=== PATIENT | male | born 1950 | race Caucasian/White ===

== ENCOUNTER → 2017-10-07 | Outpatient (CLI) | payer OTHER | END | disposition home or self-care (01) | LOC: CDC 14:33 | DX: Z01.810 Encounter for preprocedural cardiovascular examination (principal) | CPT/HCPCS: 93000 ==

== ENCOUNTER 2017-10-16 01:44 | Observation (INO) | payer OTHER ==
[~2017-10-16] VITALS: Ht 177.8 cm; Wt 90.3 kg
[2017-10-16 02:12] LABS: HEMATOCRIT 42.6 % (38.0-50.0); HEMOGLOBIN 15.2 G/DL (12.5-16.6); MCH 32.1 PG (29.0-34.0); MCHC 35.7 G/DL (30.0-36.0); MCV 89.9 FL (86-99); PLATELET COUNT 198 K/uL (156-360); RBC DIS.WIDTH-CV 13.2 % (11.8-14.6); RBC DIS.WIDTH-SD 43.9 % (39-53); RED BLOOD COUNT 4.74 M/uL (4.00-5.50); WHITE BLOOD COUNT 7.5 K/uL (4.1-10.2)
[2017-10-16 02:23] LABS: ALBUMIN 4.3 g/dL (3.2-4.8); CHLORIDE 104 mEq/L (99-109); POTASSIUM 3.8 mEq/L (3.7-5.4); SODIUM 139 mEq/L (136-147)
[2017-10-16 02:25] LABS: GLUCOSE 170 mg/dL (70-99); TOTAL PROTEIN 7.6 g/dL (6.4-8.3)
[2017-10-16 02:27] LABS: TOTAL BILIRUBIN 1.4 mg/dL (0.0-1.0)
[2017-10-16 02:29] LABS: ALKALINE PHOSPHATASE 68 IU/L (3-129); CREATININE 1.1 mg/dL (0.6-1.3); GFR ESTIMATE (CALCULATED) > 59 mL/min/ (58.99-99999)
[2017-10-16 02:30] LABS: AST (GOT) 22 IU/L (2-34); DIRECT BILIRUBIN 0.4 mg/dL (0.0-0.3); UREA NITROGEN (BUN) 16 mg/dL (9-23)
[2017-10-16 02:32] LABS: ALT (GPT) 29 IU/L (3-49); LIPASE 21 U/L (1.0-51.0)
[2017-10-16 02:33] LABS: TROP-I INTERPRETATION NEGATIVE; TROPONIN-I < 0.01 ng/mL (0.0-0.30)
[2017-10-16 04:27] VITALS: BP 138/67
[2017-10-16 04:40] LABS: HDL CHOLESTEROL 44 MG/DL (Desirable>=40); LDL CHOLESTEROL 107 mg/dL (Desirable<100); NON-HDL CHOLESTEROL 138 mg/dL (Desirable<160); TOTAL CHOLESTEROL 182 mg/dL (Desirable<200); TRIGLYCERIDES 154 MG/DL (Normal: <150)
[2017-10-16 07:13] LABS: HEMATOCRIT 46.4 % (38.0-50.0); HEMOGLOBIN 15.8 G/DL (12.5-16.6); MCH 31.1 PG (29.0-34.0); MCHC 34.1 G/DL (30.0-36.0); MCV 91.3 FL (86-99); PLATELET COUNT 199 K/uL (156-360); RBC DIS.WIDTH-CV 13.2 % (11.8-14.6); RBC DIS.WIDTH-SD 45.1 % (39-53); RED BLOOD COUNT 5.08 M/uL (4.00-5.50); WHITE BLOOD COUNT 6.3 K/uL (4.1-10.2)
[2017-10-16 07:36] LABS: TROP-I INTERPRETATION NEGATIVE; TROPONIN-I < 0.01 ng/mL (0.0-0.30)
[2017-10-16 07:48] LABS: CHLORIDE 105 MEQ/L (99-109); GFR ESTIMATE (CALCULATED) > 59 mL/min/ (58.99-99999); GLUCOSE 144 mg/dL (70-99); POTASSIUM 4.3 MEQ/L (3.7-5.4); SODIUM 141 MEQ/L (136-147); UREA NITROGEN (BUN) 14 mg/dL (9-23)
[2017-10-16 09:00] VITALS: BP 154/74
[2017-10-16] MEDS ORDERED: PRAMIPEXOLE D0.25 MG PO (10:50)
[2017-10-16] MEDS ORDERED: METFORMIN HCL500 M1 PO (10:50)
[2017-10-16] MEDS ORDERED: RASAGILINE MESYL1 MG PO (10:51)
[2017-10-16] MEDS ORDERED: COCONUT OIL1000 MG PO (10:51)
[2017-10-16] MEDS ORDERED: TURMERIC 500 M1 EACH PO (10:51)
[2017-10-16] MEDS ORDERED: GINGER250 MG PO (10:51)
[2017-10-16] MEDS ORDERED: DAILY VITE1 EAC1 PO (10:52)
[2017-10-16] MEDS ORDERED: ASPIR-LOW81 MG PO (11:38)
[2017-10-16 12:13] LABS: TROP-I INTERPRETATION NEGATIVE; TROPONIN-I < 0.01 ng/mL (0.0-0.30)
[2017-10-16 12:24] VITALS: BP 167/89
== END 2017-10-16 12:43 | disposition home or self-care (01) ==
LOC: EME 01:44 → EDOF 03:06 → ENRESERV 03:09 → 4SOUTH 04:16 → ENPENDDIS 12:20 → 4SOUTH 12:43
PROVIDERS: Internal Medicine
DX: R07.89 Other chest pain (principal); E11.9 Type 2 diabetes mellitus without complications; G20 Parkinson's disease; G25.81 Restless legs syndrome; G62.9 Polyneuropathy, unspecified; Z82.49 Family history of ischemic heart disease and other diseases of the circulatory system
CPT/HCPCS: 71046; 80048; 80048 91; 80061; 80076; 82948; 83690; 83880; 84484; 85027; 93005; 99281; 99284; G0378; J1650; J7030